=== PATIENT | male | born 1970 | race Caucasian/White ===

== ENCOUNTER → 2020-10-16 | Outpatient (CLI) | payer BC ==
--- NOTE | 2020-10-17 08:00 | CT ---
EXAMINATION TYPE: CT abdomen pelvis w con DATE OF EXAM: 10/16/2020 COMPARISON: None. HISTORY: abdominal pain X 3 weeks. Dilated biliary and pancreatic duct per order. CT DLP: 478.5 mGycm, Automated Exposure Control for Dose Reduction was Utilized. CONTRAST: CT scan of the abdomen and pelvis is performed with oral and with IV Contrast, patient injected with 100 mL of Isovue 300. FINDINGS: LUNG BASES: Small focus of slightly thickened scarring or consolidation along the right heart border in the middle lobe. LIVER/GB: Liver normal in size. No suspicious intrahepatic or extrahepatic biliary dilatation. PANCREAS: Pancreas within normal limits. No ductal dilatation noted. SPLEEN: No significant abnormality is seen. ADRENALS: No significant abnormality is seen. KIDNEYS: Symmetric cortical medullary uptake and excretion without concerning renal mass or hydroneph rosis bilaterally. Urinary bladder within normal limits. BOWEL: Oral contrast does not reach level of the terminal ileum. No suspicious small or large bowel d ilatation. Normal-appearing appendix seen from cecum in the posterior right upper pelvis. Few scatter ed diverticula in the sigmoid colon. No CT evidence for acute diverticulitis. PROSTATE/SEMINAL VESICLES: Heterogeneous prostate gland measures upper limits of normal. Adjacent rig ht-sided pelvic phlebolith. LYMPH NODES: No greater than 1cm abdominal or pelvic lymph nodes are appreciated. OSSEOUS STRUCTURES: Sacralized left L5 segment. Mild to moderate narrowing and mild acetabular spurri ng in both hip joints. OTHER: Mild calcified plaque distal abdominal aorta extends into iliac branch vessels. IMPRESSION: No acute findings are seen. No pancreatic or biliary ductal dilatation noted.
== END | disposition home or self-care (01) ==
LOC: RADCTMAIN 15:20
PROVIDERS: ATTEND Family Medicine
DX: K83.9 Disease of biliary tract, unspecified (principal); K86.89 Other specified diseases of pancreas
CPT/HCPCS: 74177; Q9967